=== PATIENT | male | born 1940 | race Caucasian/White ===

== ENCOUNTER 2018-09-22 10:28 | Emergency (ER) | payer BC ==
[~2018-09-22] VITALS: Ht 182.9 cm; Wt 77.1 kg
--- NOTE | 2018-09-22 10:28 | NUR ---
PT BIB FROM [facility]F FOR [facility], PT AAOX1-2, -SOB, NAD NOTED, PENDING ER PROVIDER EVAL.
[2018-09-22 11:04] LABS: BASOPHILS # (AUTO) 0.1 /CMM (0.0-0.2); BASOPHILS % (AUTO) 1.5 % (0.0-2.0); EOSINOPHILS % (AUTO) 4.4 % (0.0-6.0); HEMATOCRIT 38 % (39-51); HEMOGLOBIN 13.4 g/dL (13.5-17.5); LYMPHOCYTES # (AUTO) 1.1 /CMM (0.8-4.8); MEAN CORPUSCULAR HGB CONC 35 g/dl (31.0-36.0); MEAN CORPUSCULAR VOLUME 89 fL (80-96); MONOCYTES # (AUTO) 0.6 /CMM (0.1-1.30); MONOCYTES % (AUTO) 7.1 % (2.0-12.0); NEUTROPHILS # (AUTO) 6.5 /CMM (1.8-8.9); PLATELET COUNT (AUTO) 211 /CMM (150-450); RED BLOOD CELL COUNT(AUTO) 4.28 MIL/uL (4.5-6.0); WHITE BLOOD COUNT (AUTO) 8.8 K/uL (4.3-11.0)
[2018-09-22 11:15] LABS: CALCIUM, SERUM 9.1 mg/dL (8.5-10.1); CARBON DIOXIDE 31 mmol/L (21-32); CHLORIDE 106 mmol/L (98-107); CREATININE 0.8 mg/dL (0.6-1.3); GLUCOSE 107 mg/dL (74-106); POTASSIUM 3.9 mmol/L (3.5-5.1); SODIUM SERUM 142 mmol/L (136-145); UREA NITROGEN, BLOOD 24 mg/dL (7-18)
[2018-09-22] MEDS: IV NS 0.9% 1,000 ML BAG IV ONE (11:50)
--- NOTE | 2018-09-22 12:08 | NUR ---
[facility] TO [facility] ETA 1258 TRIP #[id number]
--- NOTE | 2018-09-22 12:45 | NUR ---
REPORT GIVEN TO FABRICIO MO FOR LASHELL
--- NOTE | 2018-09-22 13:00 | NUR ---
PT LEFT IN STABLE CONDTION BACK TO [facility], VSS, NAD NOTED, LEFT VIA [facility] AMBULANCE, ALL PPW GIVEN TO AMBULANCE STAFF
[2018-09-22 13:26] VITALS: BP 119/65
== END 2018-09-22 13:27 ==
LOC: ER 10:32
DX: S00.03XA Contusion of scalp, initial encounter (principal); E86.0 Dehydration; R41.82 Altered mental status, unspecified; G30.9 Alzheimer's disease, unspecified; F02.80 Dementia in other diseases classified elsewhere, unspecified severity, without behavioral disturbance, psychotic disturbance, mood disturbance, and anxiety; I10 Essential (primary) hypertension; E78.5 Hyperlipidemia, unspecified; I48.91 Unspecified atrial fibrillation; W18.09XA Striking against other object with subsequent fall, initial encounter; Y93.89 Activity, other specified; Y92.89 Other specified places as the place of occurrence of the external cause; Y99.8 Other external cause status
CPT/HCPCS: 36415; 70450; 71045; 80048; 84484; 85025; 85730; 93005; 96360; 99284; J7030

== ENCOUNTER 2018-10-09 08:38 | Inpatient (IN) | payer BC ==
[~2018-10-09] VITALS: Ht 177.8 cm; Wt 75.3 kg
[2018-10-09] VITALS (18 sets, daily range): BP systolic 124–162; BP diastolic 50–84
--- NOTE | 2018-10-09 08:48 | NUR ---
BIBA RA 878 From [facility] "was taking a shower earlier slip Fal,l -Laceration at back of head" NO LOC, PT IS AAOX1, NOT IN RESPIRATORY DISTRESS, V/S STABLE, KEPT RESTED AND COMFORTABLE, WILL CONTINUE TO MONITOR.
--- NOTE | 2018-10-09 08:50 | NUR ---
SEEN AND EXAMINED BY DR. WILKES.
--- NOTE | 2018-10-09 08:59 | NUR ---
SOFT CERVICAL COLLAR APPLIED.
--- NOTE | 2018-10-09 09:17 | NUR ---
PT IS WHEELED TO CT SCAN VIA [facility].
--- NOTE | 2018-10-09 09:52 | NUR ---
IV LINE ESTABLISHED, BLOOD DRAWNED AND SENT TO LAB.
[2018-10-09 09:53] LABS: BASOPHILS # (AUTO) 0.1 /CMM (0.0-0.2); BASOPHILS % (AUTO) 1.4 % (0.0-2.0); EOSINOPHILS % (AUTO) 4.5 % (0.0-6.0); HEMATOCRIT 40 % (39-51); HEMOGLOBIN 13.8 g/dL (13.5-17.5); LYMPHOCYTES % (AUTO) 11.6 % (20.0-44.0); MEAN CORPUSCULAR HGB CONC 35 g/dl (31.0-36.0); MEAN CORPUSCULAR VOLUME 89 fL (80-96); MONOCYTES # (AUTO) 0.6 /CMM (0.1-1.30); MONOCYTES % (AUTO) 6.7 % (2.0-12.0); NEUTROPHILS # (AUTO) 6.3 /CMM (1.8-8.9); NEUTROPHILS % (AUTO) 75.8 % (43.0-81.0); PLATELET COUNT (AUTO) 237 /CMM (150-450); RED BLOOD CELL COUNT(AUTO) 4.45 MIL/uL (4.5-6.0); WHITE BLOOD COUNT (AUTO) 8.3 K/uL (4.3-11.0)
[2018-10-09 10:02] LABS: CALCIUM, SERUM 9.1 mg/dL (8.5-10.1); CARBON DIOXIDE 32 mmol/L (21-32); CHLORIDE 107 mmol/L (98-107); CREATININE 0.9 mg/dL (0.6-1.3); GLUCOSE 101 mg/dL (74-106); POTASSIUM 4.4 mmol/L (3.5-5.1); SODIUM SERUM 142 mmol/L (136-145); UREA NITROGEN, BLOOD 21 mg/dL (7-18)
[2018-10-09] MEDS ORDERED: AMLO5TAB9 PO (10:25)
[2018-10-09] MEDS ORDERED: ALEN70TA6 PO (10:25)
[2018-10-09] MEDS ORDERED: ACET-868 PO (10:25)
[2018-10-09] MEDS ORDERED: METO-357 PO (10:25)
[2018-10-09] MEDS ORDERED: LEVO100T9 PO (10:25)
[2018-10-09] MEDS ORDERED: ATOR10TA PO (10:25)
[2018-10-09] MEDS ORDERED: LOSA25TA27 PO (10:25)
[2018-10-09] MEDS ORDERED: ASPI-1169 PO (10:25)
[2018-10-09] MEDS ORDERED: ACETAMINOPHEN 325 MG TABLET PO PRN (10:30)
[2018-10-09] MEDS ORDERED: ONDANSETRON HCL/PF 4 MG/2 ML VIAL IVP PRN (10:30)
--- NOTE | 2018-10-09 10:51 | NUR ---
REPORT GIVEN TO LAURA MCKEON FOR LASHELL.
--- NOTE | 2018-10-09 11:00 | NUR ---
RN NOTES RECEIVED PT IN ROOM 253 FROM ER , PT IS CONFUSED AND COMBATIVE TO TOUCH, FOLLOWS SIMPLE COMMAND, ON TELE SR HR IN 80'S , NO SKIN BREAKDOWN NOTED, R AC IV SITE G 18 CLEAN, DRY AND INTACT, PT IS NPO PER MD ORDER, , BED ALARM ON , SR UP x3, CALL LIGHT WITHIN EASY REACH, BED LOCKED AND IN LOWEST POSITION, CONTINUE TO MONITOR OR ANY NEUROLOGICAL CHANGES .
[2018-10-09] MEDS ORDERED: FAMOTIDINE/PF INJ 20 MG/2 ML VIAL IV SCH (12:00)
--- NOTE | 2018-10-09 13:00 | NUR ---
RN NOTES NO DHILLON PER DR HILL , PT VOIDING PER DIAPER .
--- NOTE | 2018-10-09 14:00 | NUR ---
RN NOTES VSS STABLE, NO DISTRESS NOTED , SUPPORTIVE AT THE BEDSIDE.
--- NOTE | 2018-10-09 18:06 | NUR ---
RN NOTES PT EAT 100% OF HIS DINNER , WATCHING TV , VSS STABLE, NO NEUROLOGICAL CHANGES NOTED ON THIS SHIFT , SR UP x3 , BED ALARM ON , WILL ENDORSE TO SUPERVISOR COMMERCIAL FISH HATCHERY NURSE FOR CONTINUITY OF CARE
--- NOTE | 2018-10-09 23:09 | NUR ---
suresh SBP NOTED BETWEEN 140- 160'S, SPOKE TO AMISHA JERNIGAN BICYCLE INSPECTOR, WITH NEW ORDER TO GIVE 10 MG HYDRALAZINE IVP Q6HRS PRN. CHARGE NURSE MADE AWARE. Addendum: 10/09/18 at 2311 by REGULO HOOPER RN GIVE 10 MG HYDRALAZINE IVP Q 6HRS TO KEEP SBP < 140
[2018-10-09] MEDS: hydrALAZINE HCL IV 20 MG VIAL IV PRN (23:24)
[2018-10-10] VITALS (16 sets, daily range): BP systolic 124–149; BP diastolic 56–94
[2018-10-10] MEDS: FAMOTIDINE/PF INJ 20 MG/2 ML VIAL IV SCH (08:43)
[2018-10-10] MEDS: hydrALAZINE HCL IV 20 MG VIAL IV PRN ×2 (08:44→22:27)
--- NOTE | 2018-10-10 09:13 | NUR ---
Pt seen & examined by Dr. Patel. Per , may change the dose of Pepcid from 40mg to [address] SCD pumps. to do med recon.
--- NOTE | 2018-10-10 10:30 | NUR ---
ICU TRANSFER NOTES: Pt brought to rad dept for CT scan of the head w/o contrast. Pt tolerated the procedure well. Per CN, to downgrade pt to Tele 111/. Report given to Mc SANCHEZ. Pt transferred to room via bed, not in any distress. Pt remains A/O x 1 (no change in neurowise). SR on telemonitor. IV line access kept patent & intact w/ no s/sx of infection/infiltration noted. BM x1, soft brownish. Placed SCD pumps. Safety precaution kept in place w/ bed in lowest & locked pos. Call light placed w/in reach. All belongings w/ pt. at bedside. Endorsed accordingly. Dr. Patel notified that pt was transferred to Tele 111/.
--- NOTE | 2018-10-10 10:40 | NUR ---
RN NOTES RECEIVED PATIENT FROM ICU. REPORT WAS GIVEN BY LAURA VALDIVIA. PATIENT WAS ACCOMPANIED TO THE UNIT BY LAURA VALDIVIA. PATIENT WAS THEN TRANSFERRED TO THE BED. NO PAIN OR ACUTE DISTRESS AT THIS TIME. RESPIRATION EVEN AND UNLABORED. SKIN IS DRY WARM TO TOUCH. FAMILY MEMBER AT BEDSIDE. PATIENT IS NOTED WITH IV ACCESS ON RFA AND RAC. INTACT AND PATENT. FLUSHING WELL. NO S/S OF INFECTION OR INFILTRATION. TELE MONITOR WAS PLACED. PATIENT ON SR AROUND 80'S. ALL NEEDS ANTICIPATED. KEPT CLEAN AND DRY. CALL LIGHT WITHIN REACHED. BED LOCKED AND IN LOWEST POSITION. PLAN OF CARE DISCUSSED TO FAMILY MEMBER. STILL AWAITING RESULTS FOR THE CT HEAD. CALLED LAB AND ACCORDING TO THEM THEY WILL GET TO IT IN ABOUT 2 HOURS SINCE ITS ROUTINE. WILL CONTINUE TO MONITOR PATIENT CLOSELY.
[2018-10-10] MEDS ORDERED: ALENDRONATE 70 MG TABLET PO SCH (11:00)
[2018-10-10] MEDS: LOSARTAN POTASSIUM 25 MG TABLET PO SCH ×2 (11:14→17:29)
[2018-10-10] MEDS: ATORVASTATIN 10 MG TABLET PO SCH (11:15)
[2018-10-10] MEDS: LEVOTHYROXINE SODIUM 100 MCG TABLET PO SCH (11:15)
[2018-10-10] MEDS: METOPROLOL SUCCINATE 50 MG TAB.SR.24H PO SCH (11:15)
[2018-10-10] MEDS: AMLODIPINE BESYLATE 5 MG TABLET PO SCH (11:15)
--- NOTE | 2018-10-10 18:48 | NUR ---
RN NOTES RECEIVED A CALL FROM DR. HILL TO PLACE AN ORDER FOR A PT EVAL FOR TOMORROW MORNING. PATIENT CONTINUES TO BE IN STABLE CONDITION. WILL CONTINUE TO MONITOR CLOSELY.
--- NOTE | 2018-10-10 19:13 | NUR ---
RN CLOSING NOTES PATIENT IN BED SLEEPING COMFORTABLY. PATIENT CONTINUES TO REMAIN IN STABLE CONDITION. PROVIDED COMFORT AND SAFETY. NO PAIN OR ACUTE DISTRESS AT THIS TIME. RESPIRATION EVEN AND UNLABORED. SKIN IS DRY WARM TO TOUCH. PATIENT WAS ABLE TO TOLERATE MEALS AND MEDS WELL. NO ADVERSE REACTIONS. IV ACCESS ON RAC AND RFA INTACT AND PATENT. NO S/S OF INFILTRATION. FLUSHING WELL. ALL NEEDS ANTICIPATED. KEPT CLEAN AND DRY. CALL LIGHT WITHIN REACHED. WILL CONTINUE TO MONITOR. ENDORSED TO PM NURSE FOR LASHELL.
--- NOTE | 2018-10-10 19:15 | NUR ---
RN INITIAL NOTES: RECEIVED REPORT FROM ELI SANCHEZ. PT IN BED, AWAKE, OPEN EYES SPONTANEOUSLY, APPEARS TO BE DELAYED, WHEN YOU ASK PT HE WILL JUST LOOK AND STARE AT YOU AND NO VERBAL RESPONSE, BUT SOMETIMES PT WILL NOD AND SAY YES, OR NO. OTHER THAN THAT, UNABLE TO GET DEFINITE INFORMATION. IV ACCESS PATENT AND FLUSHING WELL ON HL. ON SINUS RHYTHM HR 65, WITH OCCASIONAL PVCS. BLE OFFLOADED. ASPIRATION PROTOCOL INITIATED. SAFETY PRECAUTIONS FOR FALL INITIATED, CALL LIGHT IN REACH, WILL CONTINUE MONITORING PT.
--- NOTE | 2018-10-10 22:28 | NUR ---
PRN APRESOLINE: RECHECK PT'S BP RESULT IS 144/88 HR 52, ORDER TO KEEP SBP <140, PRN APRESOLINE 10MG IVP ADMINISTERED AT THIS TIME, WILL CONTINUE TO MONITOR AND REASSESS
[2018-10-11] VITALS: BP 140/71
--- NOTE | 2018-10-11 01:55 | NUR ---
RN NOTES: REPORT GIVEN TO LAURA AMARO, PT AWAKE, WATCHING TV, REMAINS TO BE DELAYED SINUS RHYTHM HR 60. NO FACIAL GRIMACE NOTED, APPEARS CALM AND COMFORTABLE. ENDORSE TO LAURA AMARO FOR CONTINUITY OF CARE.
--- NOTE | 2018-10-11 01:58 | NUR ---
RN NOTES RECEIVED REPORT FROM HIREN. PT STABLE IN BED, DOSING INTERMITTENTLY IN NO APPARENT DISTRESS OR DISCOMFORT.
[2018-10-11 04:00] VITALS: BP 132/90
--- NOTE | 2018-10-11 06:18 | NUR ---
RN CLOSING NOTES REMAINS IN BED, AWAKE ALERT ORIENTEDX1, UNRESPONSIVE VERBALLY, BREATHING EVEN AND UNLABORED ON ROOM AIR, NO COUGH OR CONGESTION OR SOB NOTED. OPENS EYES SPONTANEOUSLY AND RESPONSIVE TO TOUCH AND NAME CALL. PT REMAINS STABLE. SBP LOWER THAN 140. NO CHANGE DURING SHIFT. WILL ENDORSE TO DAY NURSE FOR LASHELL
[2018-10-11 07:20] LABS: BASOPHILS # (AUTO) 0.1 /CMM (0.0-0.2); BASOPHILS % (AUTO) 0.9 % (0.0-2.0); EOSINOPHILS % (AUTO) 7.4 % (0.0-6.0); HEMATOCRIT 38 % (39-51); HEMOGLOBIN 13.2 g/dL (13.5-17.5); LYMPHOCYTES # (AUTO) 1.1 /CMM (0.8-4.8); LYMPHOCYTES % (AUTO) 12.7 % (20.0-44.0); MEAN CORPUSCULAR HGB CONC 35 g/dl (31.0-36.0); MEAN CORPUSCULAR VOLUME 87 fL (80-96); MONOCYTES # (AUTO) 0.7 /CMM (0.1-1.30); MONOCYTES % (AUTO) 8.9 % (2.0-12.0); NEUTROPHILS # (AUTO) 5.8 /CMM (1.8-8.9); NEUTROPHILS % (AUTO) 70.1 % (43.0-81.0); PLATELET COUNT (AUTO) 219 /CMM (150-450); RED BLOOD CELL COUNT(AUTO) 4.34 MIL/uL (4.5-6.0); WHITE BLOOD COUNT (AUTO) 8.3 K/uL (4.3-11.0)
[2018-10-11 07:38] LABS: CALCIUM, SERUM 8.6 mg/dL (8.5-10.1); CARBON DIOXIDE 26 mmol/L (21-32); CHLORIDE 102 mmol/L (98-107); CREATININE 0.8 mg/dL (0.6-1.3); GLUCOSE 104 mg/dL (74-106); MAGNESIUM 2.1 mg/dL (1.8-2.4); PHOSPHORUS 3.8 mg/dL (2.5-4.9); POTASSIUM 3.7 mmol/L (3.5-5.1); SODIUM SERUM 137 mmol/L (136-145); UREA NITROGEN, BLOOD 16 mg/dL (7-18)
[2018-10-11 08:00] VITALS: BP 136/58
[2018-10-11] MEDS: LOSARTAN POTASSIUM 25 MG TABLET PO SCH (09:06)
[2018-10-11] MEDS: ATORVASTATIN 10 MG TABLET PO SCH (09:06)
[2018-10-11] MEDS: FAMOTIDINE/PF INJ 20 MG/2 ML VIAL IV SCH (09:06)
[2018-10-11] MEDS: METOPROLOL SUCCINATE 50 MG TAB.SR.24H PO SCH (09:07)
[2018-10-11] MEDS: AMLODIPINE BESYLATE 5 MG TABLET PO SCH (09:07)
[2018-10-11] MEDS: LEVOTHYROXINE SODIUM 100 MCG TABLET PO SCH (09:10)
--- NOTE | 2018-10-11 09:34 | NUR ---
teletypesetter monitor notes per waldo osuna for pt to be discharged.
[2018-10-11 12:00] VITALS: BP 133/70
--- NOTE | 2018-10-11 12:08 | NUR ---
television news video editor notes report given to don grimaldo at [facility]. transportation arranged return pt back. at bedside.
--- NOTE | 2018-10-11 12:55 | NUR ---
agent telegrapher notes pt discharged with ambulance. nedy at bedside. vs stable. iv/id band removed. belongings with patient. discharge instructions given to ambulance crew. assisted living facility awaiting pt arrival.
== END 2018-10-11 12:50 | DRG 85 ==
LOC: ER 08:39 → ICU 10:46 → TELE1 10-10 10:20
PROVIDERS: ADMIT Student in an Organized Health Care Education/Training Program; ATTEND Student in an Organized Health Care Education/Training Program
DX: S06.6X0A Traumatic subarachnoid hemorrhage without loss of consciousness, initial encounter (principal); G93.41 Metabolic encephalopathy; E78.5 Hyperlipidemia, unspecified; E86.0 Dehydration; I10 Essential (primary) hypertension; G30.9 Alzheimer's disease, unspecified; F02.80 Dementia in other diseases classified elsewhere, unspecified severity, without behavioral disturbance, psychotic disturbance, mood disturbance, and anxiety; Y92.129 Unspecified place in nursing home as the place of occurrence of the external cause; W01.0XXA Fall on same level from slipping, tripping and stumbling without subsequent striking against object, initial encounter; Z98.890 Other specified postprocedural states; M77.9 Enthesopathy, unspecified; M53.82 Other specified dorsopathies, cervical region; S00.03XA Contusion of scalp, initial encounter; Z87.891 Personal history of nicotine dependence; I70.8 Atherosclerosis of other arteries
CPT/HCPCS: 36415; 70450-TC; 72125-TC; 80048-TC; 83735-TC; 84100-TC; 84484-TC; 85025-TC; 87081-TC; 92526; 92611-TC; 97530-TC; G0378; J0360; J3490

== ENCOUNTER 2021-06-08 09:50 | Inpatient (IN) | payer BC ==
[~2021-06-08] VITALS: Ht 177.8 cm; Wt 77.1 kg
[~2021-06-08 09:50] MED LIST: ACET-868 PO; ALEN70TA80 PO; AMLO-212 PO; ASPI-1169 PO; ATOR10TA PO; LEVO100T9 PO; LOSA25TA27 PO; METO-357 PO
--- NOTE | 2021-06-08 09:50 | NUR ---
BRUCE Laguna FROM [facility] C/O MORE ALTERED THAN USUAL AFTER HAVING BREAKFAST AT 0830. AFEBRILE, A&OX1 PT IN VERBALLY UNRESPONSIVE BUT FOLLOW COMMANDS. VITALS ARE WITHIN NORMAL LIMITS, O2 SAT 95% ON ROOM AIR. WARM BLANKET PROVIDED FOR COMFORT. DR SETH AT BEDSIDE.
--- NOTE | 2021-06-08 09:57 | NUR ---
LABS DRAWN, COVID TEST AND URINE SAMPLE COLLECTED AND SENT.
[2021-06-08] MEDS ORDERED: IV NS 0.9% 1,000 ML BAG IV ONE ×2 (10:00→12:30)
--- NOTE | 2021-06-08 10:09 | NUR ---
DR SETH AT BEDSIDE WITH PT'S
--- NOTE | 2021-06-08 10:27 | NUR ---
TAKEN TO CT
--- NOTE | 2021-06-08 10:33 | NUR ---
MOVE SHEET SUBMITTED AND CALLED FOR TELE BED.
--- NOTE | 2021-06-08 10:38 | NUR ---
BACK FROM CT
--- NOTE | 2021-06-08 10:43 | NUR ---
MATTHEW AT BEDSIDE CONTACT# [phone]
[2021-06-08 11:07] LABS: BASOPHILS # (AUTO) 0.1 K/uL (0.0-0.2); BASOPHILS % (AUTO) 1.4 % (0.0-2.0); EOSINOPHILS % (AUTO) 3.6 % (0.0-6.0); HEMATOCRIT 37 % (39-51); HEMOGLOBIN 12.5 g/dL (13.5-17.5); LYMPHOCYTES # (AUTO) 1.1 K/uL (0.8-4.8); LYMPHOCYTES % (AUTO) 12.9 % (20.0-44.0); MEAN CORPUSCULAR HGB CONC 33 g/dl (31.0-36.0); MEAN CORPUSCULAR VOLUME 84 fL (80-96); MONOCYTES # (AUTO) 0.7 K/uL (0.1-1.30); MONOCYTES % (AUTO) 8.2 % (2.0-12.0); NEUTROPHILS # (AUTO) 6.1 K/uL (1.8-8.9); NEUTROPHILS % (AUTO) 73.9 % (43.0-81.0); PLATELET COUNT (AUTO) 264 K/uL (150-450); RED BLOOD CELL COUNT(AUTO) 4.46 MIL/uL (4.5-6.0); WHITE BLOOD COUNT (AUTO) 8.3 K/uL (4.3-11.0)
[2021-06-08 11:13] LABS: BILIRUBIN,URINE NEGATIVE (NEGATIVE); COLOR,URINE YELLOW (YELLOW); NITRITE, URINE NEGATIVE (NEGATIVE); PROTEIN,URINE 30 mg/dl (NEGATIVE); UGLUCOSE NEGATIVE (NEGATIVE); UROBILINOGEN,URINE 0.2 EU/dL (0.2)
--- NOTE | 2021-06-08 11:27 | NUR ---
TYLENOL 650MG PO WITHHELD. SWALLOW TEST WAS CONDUCTED PRIOR, PT IS UNABLE TO WATER.
[2021-06-08] MEDS ORDERED: ACETAMINOPHEN 325 MG TABLET PO ONE (11:30)
--- NOTE | 2021-06-08 11:50 | NUR ---
[facility] CALLED GEOLOGICAL ENGINEER PAGED.
[2021-06-08 11:57] LABS: CALCIUM, SERUM 8.8 mg/dL (8.5-10.1); CARBON DIOXIDE 28 mmol/L (21-32); CHLORIDE 104 mmol/L (98-107); CREATININE 0.9 mg/dL (0.6-1.3); GLUCOSE 94 mg/dL (74-106); POTASSIUM 4.1 mmol/L (3.5-5.1); SODIUM SERUM 140 mmol/L (136-145); UREA NITROGEN, BLOOD 19 mg/dL (7-18)
[2021-06-08 12:17] LABS: ALANINE AMINOTRANSFERASE 25 U/L (12-78); ALBUMIN 3.4 g/dL (3.4-5.0); ALKALINE PHOSPHATASE 71 U/L (46-116); ASPARTATE AMINOTRANSFERASE 20 U/L (15-37); BILIRUBIN,DIRECT 0.1 mg/dL (0.0-0.2); BILIRUBIN,TOTAL 0.4 mg/dL (0.2-1.0); TOTAL PROTEIN, SERUM 6.9 g/dL (6.4-8.2)
[2021-06-08 12:23] LABS: SERUM AMMONIA 29 umol/L (11-32)
[2021-06-08 12:27] LABS: ACETAMINOPHEN 0 ug/ml (10-30); ALCOHOL, BLOOD < 3 mg/dL (0-0)
[2021-06-08] MEDS ORDERED: CEFTRIAXONE 1 G in IV D5W 50 ML IV ONE (12:30)
[2021-06-08] MEDS ORDERED: AZITHROMYCIN 500 MG in IV D5W 250 ML IV ONE (12:30)
[2021-06-08] MEDS ORDERED: KETOROLAC TROMETHAMINE INJ 30 MG/ML VIAL IV ONE (12:30)
[2021-06-08] MEDS ORDERED: FLAGYL/NS RTU 500 MG/100 ML PIGGYBACK IV ONE (12:30)
[2021-06-08 12:40] LABS: BACTERIA,URINE None seen /HPF (None Seen); LEUKOCYTE ESTERASE ,URINE 1+ (NEGATIVE); SQUAMOUS EPITHELIAL CELL,UR Few /HPF (None Seen)
[2021-06-08] MEDS ORDERED: KETOROLAC TROMETHAMINE 15 MG/ML VIAL ONE (12:56)
[2021-06-08] MEDS ORDERED: METRONIDAZOLE 500MG/ NS 100ML 100 ML IV ONE (12:56)
[2021-06-08 13:59] LABS: THYROID STIMULATING HORMONE 1.375 uIU/mL (0.358-3.74)
--- NOTE | 2021-06-08 15:12 | NUR ---
COVID PCR SWAB DONE AND SENT TO LAB
--- NOTE | 2021-06-08 15:13 | NUR ---
BED GIVEN 116
--- NOTE | 2021-06-08 15:17 | NUR ---
REPORT GIVEN TO ONELIA SANCHEZ FOR LASHELL
--- NOTE | 2021-06-08 15:45 | NUR ---
TRANSFERRED TO BED 116 IN STABLE CONDITION
--- NOTE | 2021-06-08 15:50 | NUR ---
COLUMN PRECASTER NOTE PT WAS RECEIVED FROM ER WITH STABLE VITALS. 136/77 HR 80 RR 20 TEMP 97.8 SPO2 SAT 98% ROOM AIR. REPORT. PT IS A/O X 1, NON-VERBAL WITH EYES OPEN. NO S/SX SOB. NO ACUTE DISTRESS NOTED. PT CONNECTED TO EXTERNAL BEAUTY CULTURIST WITH SINUS RHYTHM READING 72. PLACED CALL LIGHT AND BED SIDE TABLE PLACED WITHIN REACH. IV ACCESS RHAND#22 AND LAC#20 PATENT AND INTACT, FLUSHING WELL. I SPOKE WITH MATTHEW TO OBTAIN MEDICAL HISTORY. PER , PT IS DNI/DNR WITH POLST COPY FILED IN CHART. SAFETY MEASURES IMPLEMENTED WITH HOB ELEVATED, BED LOCKED AND AT LOW POSITION WITH SIDE RAILS UP X 2. WILL CONTINUE TO MONITOR PATIENT THROUGHOUT SHIFT.
[2021-06-08] MEDS ORDERED: MAGNESIUM HYDROXIDE 30 ML UDC PO PRN (16:30)
[2021-06-08] MEDS ORDERED: Z GUARD REMEDY 4 OZ OINT TP PRN (16:30)
[2021-06-08] MEDS ORDERED: ONDANSETRON HCL/PF 4 MG/2 ML VIAL IVP PRN (16:30)
[2021-06-08] MEDS ORDERED: MAG HYDROX/AL HYDROX/SIMETH 30 ML UDC PO PRN (16:30)
[2021-06-08] MEDS ORDERED: ZOLPIDEM TARTRATE 5 MG TABLET PO PRN (16:30)
[2021-06-08] MEDS ORDERED: ACETAMINOPHEN 325 MG TABLET PO PRN (16:30)
[2021-06-08] MEDS: ENOXAPARIN SODIUM 40 MG/0.4 ML DISP.SYRIN SQ SCH (17:12)
[2021-06-08] MEDS: ZOSYN IVPB 3.375 G in IV D5W 50ml IV SCH (17:38)
--- NOTE | 2021-06-08 18:50 | NUR ---
BROADCAST PRODUCER CLOSING NOTE PT IS IN BED RESTING WITH EYES CLOSED;EASY TO AROUSE. ALL NEEDS MET THROUGHOUT SHIFT. NO S/SX OF ACUTE DISTRESS NOTED. BREATHING IS EVEN AND UNLABORED. EXTERNAL MARKETING INFORMATION COORDINATOR WITH READING SR 70'S. SAFETY MEASURES MAINTAINED. WILL ENDORSE CONTINUITY OF CARE TO ONCOMING SHIFT.
[2021-06-08] MEDS ORDERED: VANCOMYCIN 1.25 GM in IV D5W 250 ML IV ONE (19:00)
--- NOTE | 2021-06-08 19:10 | NUR ---
RN NOTES RECEIVED REPORT FROM MORNING RN. PATIENT IN BED A/O X1 NON VERBAL. WITH IV ACCESS ON LAC #20 R HAND # [id number] PATENT FLUSHES WELL. VITAL SIGNS TAKEN AND RECORDED AFEBRILE. PATIENT COMFORTABLE IN BED NO DISTRESS NO DESATURATION NOTED. ALL SAFETY MEASURES IN PLACE, HOB ELEVATED. CALL LIGHT WITHIN REACH. BED ON LOWEST POSITION AND LOCKED. WILL CLOSELY MONITOR THE PATIENT
[2021-06-08 20:00] VITALS: BP 113/66
[2021-06-09] VITALS: BP 124/63
[2021-06-09] MEDS: ZOSYN IVPB 3.375 G in IV D5W 50ml IV SCH ×5 (00:21→23:52)
[2021-06-09 04:00] VITALS: BP 139/65
--- NOTE | 2021-06-09 06:36 | NUR ---
RN NOTES PT IS IN BED RESTING WITH EYES CLOSED;EASY TO AROUSE. ALL NEEDS MET THROUGHOUT SHIFT. NO S/SX OF ACUTE DISTRESS NOTED. BREATHING IS EVEN AND UNLABORED. EXTERNAL INDUSTRIAL PROPERTY APPRAISER WITH READING SR 70'S. SAFETY MEASURES MAINTAINED. WILL ENDORSE CONTINUITY OF CARE TO ONCOMING SHIFT.
[2021-06-09 07:29] LABS: BASOPHILS # (AUTO) 0.2 K/uL (0.0-0.2); BASOPHILS % (AUTO) 2.6 % (0.0-2.0); HEMATOCRIT 32 % (39-51); HEMOGLOBIN 10.9 g/dL (13.5-17.5); LYMPHOCYTES # (AUTO) 1.1 K/uL (0.8-4.8); LYMPHOCYTES % (AUTO) 13.2 % (20.0-44.0); MEAN CORPUSCULAR HGB CONC 35 g/dl (31.0-36.0); MEAN CORPUSCULAR VOLUME 83 fL (80-96); MONOCYTES # (AUTO) 0.6 K/uL (0.1-1.30); MONOCYTES % (AUTO) 7.5 % (2.0-12.0); NEUTROPHILS % (AUTO) 72.7 % (43.0-81.0); PLATELET COUNT (AUTO) 222 K/uL (150-450); RED BLOOD CELL COUNT(AUTO) 3.81 MIL/uL (4.5-6.0); WHITE BLOOD COUNT (AUTO) 8.2 K/uL (4.3-11.0)
[2021-06-09 08:00] VITALS: BP 133/64
[2021-06-09] MEDS: PANTOPRAZOLE 40 MG TABLET.DR PO SCH (08:00)
[2021-06-09] MEDS: VANCOMYCIN 1 GM in IV D5W 250 ML IV SCH ×2 (08:01→18:49)
[2021-06-09 08:16] LABS: CALCIUM, SERUM 8.4 mg/dL (8.5-10.1); CREATININE 0.8 mg/dL (0.6-1.3); MAGNESIUM 2.3 mg/dL (1.8-2.4); PHOSPHORUS 3.6 mg/dL (2.5-4.9); POTASSIUM 3.6 mmol/L (3.5-5.1); THYROID STIMULATING HORMONE 1.033 uIU/mL (0.358-3.74)
[2021-06-09] MEDS ORDERED: CHOL100043 PO (08:33)
[2021-06-09] MEDS ORDERED: CHLO473M5 MM (08:33)
[2021-06-09] MEDS ORDERED: POLY15DR40 LEFTEYE (08:33)
[2021-06-09] MEDS ORDERED: POLY17PO4 PO (08:33)
[2021-06-09 12:00] VITALS: BP 119/69
[2021-06-09 16:00] VITALS: BP 141/70
[2021-06-09] MEDS: ENOXAPARIN SODIUM 40 MG/0.4 ML DISP.SYRIN SQ SCH (17:14)
[2021-06-09] MEDS ORDERED: ACETAMINOPHEN 325 MG TABLET PO PRN (18:00)
[2021-06-09] MEDS ORDERED: POLYVINYL ALCOHOL 15 ML BOTTLE OP PRN (18:00)
[2021-06-09] MEDS ORDERED: ALENDRONATE 70 MG TABLET PO SCH (18:00)
--- NOTE | 2021-06-09 19:34 | NUR ---
RN NOTE PT RESTING IN BED. AWAKE ALERT AND RESPONSIVE TO STIMULI. ALL NEEDS MET, DUE MEDS GIVEN. NO S/SX OF ACUTE DISTRESS NOTED. BREATHING IS EVEN AND UNLABORED. EXTERNAL BINDING NICKER SR. SAFETY MEASURES MAINTAINED.
[2021-06-09 20:00] VITALS: BP 155/71
[2021-06-10] VITALS: BP 137/60
[2021-06-10 04:00] VITALS: BP 135/69
[2021-06-10] MEDS: ZOSYN IVPB 3.375 G in IV D5W 50ml IV SCH ×2 (06:34→12:38)
[2021-06-10 07:10] LABS: CALCIUM, SERUM 8.2 mg/dL (8.5-10.1); CREATININE 0.9 mg/dL (0.6-1.3); MAGNESIUM 2.3 mg/dL (1.8-2.4); PHOSPHORUS 4.3 mg/dL (2.5-4.9); POTASSIUM 3.4 mmol/L (3.5-5.1)
[2021-06-10 07:19] LABS: BASOPHILS # (AUTO) 0.1 K/uL (0.0-0.2); BASOPHILS % (AUTO) 1.9 % (0.0-2.0); EOSINOPHILS % (AUTO) 5.1 % (0.0-6.0); HEMATOCRIT 32 % (39-51); HEMOGLOBIN 11.1 g/dL (13.5-17.5); LYMPHOCYTES # (AUTO) 1.1 K/uL (0.8-4.8); LYMPHOCYTES % (AUTO) 14.7 % (20.0-44.0); MEAN CORPUSCULAR HGB CONC 34 g/dl (31.0-36.0); MEAN CORPUSCULAR VOLUME 82 fL (80-96); MONOCYTES # (AUTO) 0.7 K/uL (0.1-1.30); MONOCYTES % (AUTO) 8.7 % (2.0-12.0); NEUTROPHILS # (AUTO) 5.3 K/uL (1.8-8.9); NEUTROPHILS % (AUTO) 69.6 % (43.0-81.0); PLATELET COUNT (AUTO) 219 K/uL (150-450); RED BLOOD CELL COUNT(AUTO) 3.93 MIL/uL (4.5-6.0); WHITE BLOOD COUNT (AUTO) 7.7 K/uL (4.3-11.0)
--- NOTE | 2021-06-10 07:27 | NUR ---
RN NOTES ENDORSE CARE OF PATIENT TO AM NURSE WHILE PATIENT IN BED, A/O X1, NON VERBAL, OPENS EYES TO PAINFUL STIMULI. PATIENT IN STABLE CONDITIONS, ALL DUE MEDS GIVEN, ALL NEEDS ATTENDED TO. ALL SAFETY MEASURES IMPLEMENTED.
[2021-06-10] MEDS ORDERED: LEVOTHYROXINE SODIUM 100 MCG TABLET PO SCH (07:30)
[2021-06-10 08:00] VITALS: BP 141/65
[2021-06-10] MEDS: VANCOMYCIN 1 GM in IV D5W 250 ML IV SCH (08:27)
[2021-06-10] MEDS: PANTOPRAZOLE 40 MG TABLET.DR PO SCH (08:39)
[2021-06-10] MEDS ORDERED: AMLODIPINE BESYLATE 5 MG TABLET PO SCH (09:00)
[2021-06-10] MEDS ORDERED: LOSARTAN POTASSIUM 25 MG TABLET PO SCH (09:00)
[2021-06-10] MEDS ORDERED: ATORVASTATIN 10 MG TABLET PO SCH (09:00)
[2021-06-10] MEDS ORDERED: METOPROLOL SUCCINATE 50 MG TAB.SR.24H PO SCH (09:00)
[2021-06-10] MEDS ORDERED: CHOLECALCIFEROL 1,000 UNIT TABLET (VIT D3) PO SCH (09:00)
[2021-06-10] MEDS ORDERED: POLYETHYLENE GLYCOL 3350 17 GM POWD.PACK PO SCH (09:00)
[2021-06-10] MEDS ORDERED: POTASSIUM CHLORIDE 20 MEQ TAB.PRT.SR PO SCH ×2 (10:00→12:00)
[2021-06-10 12:41] VITALS: BP 164/59
[2021-06-10] MEDS ORDERED: AMOX-430 PO (13:37)
== END 2021-06-10 15:47 | DRG 177 ==
LOC: ER 09:54 → TELE1 15:22
PROVIDERS: ADMIT Student in an Organized Health Care Education/Training Program; ATTEND Student in an Organized Health Care Education/Training Program
DX: J15.6 Pneumonia due to other Gram-negative bacteria (principal); I21.4 Non-ST elevation (NSTEMI) myocardial infarction; N17.0 Acute kidney failure with tubular necrosis; G93.41 Metabolic encephalopathy; N39.0 Urinary tract infection, site not specified; J44.0 Chronic obstructive pulmonary disease with (acute) lower respiratory infection; J96.11 Chronic respiratory failure with hypoxia; B96.5 Pseudomonas (aeruginosa) (mallei) (pseudomallei) as the cause of diseases classified elsewhere; Z20.822 Contact with and (suspected) exposure to COVID-19; F02.80 Dementia in other diseases classified elsewhere, unspecified severity, without behavioral disturbance, psychotic disturbance, mood disturbance, and anxiety; G30.9 Alzheimer's disease, unspecified; Z66 Do not resuscitate; Z51.5 Encounter for palliative care; E78.5 Hyperlipidemia, unspecified; I10 Essential (primary) hypertension; E11.9 Type 2 diabetes mellitus without complications; E03.9 Hypothyroidism, unspecified; Z79.82 Long term (current) use of aspirin; Z79.83 Long term (current) use of bisphosphonates; Z79.899 Other long term (current) drug therapy; D64.9 Anemia, unspecified; E86.0 Dehydration; R79.89 Other specified abnormal findings of blood chemistry; Y95 Nosocomial condition; Z87.891 Personal history of nicotine dependence; D16.9 Benign neoplasm of bone and articular cartilage, unspecified
CPT/HCPCS: 36415; 70450-TC; 71045-TC; 80048-TC; 80076-TC; 80202-TC; 81001; 82140-TC; 83605-TC; 83735-TC; 84100-TC; 84443-TC; 84484-TC; 85025-TC; 85730-TC; 87040-TC; 87081-TC; 87086-TC; 92526; 92611-TC; C9803; G0378; G0480; J0456; J0696; J1650; J1885; J2543; J3370; J7030; J7060; U0003